=== PATIENT | female | born 1950 | race African-American/Black ===

== ENCOUNTER 2021-12-11 23:30 | Inpatient (IN) | payer MEDICARE, MEDICAID ==
[~2021-12-11] VITALS: Ht 154.9 cm; Wt 59.1 kg
[~2021-12-11 23:30] MED LIST: ACET-2708 PO; ASPI-1406 PO; ATEN-42 PO; ATEN50TA PO; ATOR20TA65 PO; BUPR-315 PO; DOCU-150 MT; LISI40TA13 PO; METF-414 PO; OLAN5TAB74 PO; SITA50TA3 PO
[2021-12-12] MEDS ORDERED: ASPIRIN 325MG EC TABLET PO NR (00:15)
[2021-12-12 00:34] LABS: CHLORIDE 108 mEq/L (98-107)
[2021-12-12 00:53] LABS: BASOPHILS % 2.7 % (0.0-2.0); EOSINOPHILS % 5.2 % (0.0-5.0); HEMOGLOBIN. 11.9 g/dL (12.0-16.0); LYMPHOCYTES % 42.2 % (20.0-50.0); MEAN CORPUSCULAR HEMOGLOBIN 31.8 pg (28.0-32.0); MEAN CORPUSCULAR VOLUME 96.6 fL (81.0-99.0); MEAN PLATELET VOLUME 9.7 fl (7.4-10.4); MONOCYTES % 4.1 % (2.0-8.0); NEUTROPHILS % 45.8 % (40.0-76.0); PLATELET 277 x1000/uL (130-400); RED BLOOD CELL COUNT 3.73 mill/uL (4.2-5.4); RED CELL DISTRIBUTION WIDTH 18.9 % (11.6-14.6)
[2021-12-12] MEDS ORDERED: FUROSEMIDE 100MG/10ML VIAL IVP NR (01:15)
[2021-12-12 08:00] LABS: CLARITY URINE CLEAR (CLEAR); COLOR URINE YELLOW (YELLOW); KETONES URINE NEGATIVE (NEGATIVE); LEUKOCYTE ESTERASE URINE 2+ (NEGATIVE); NITRITE URINE NEGATIVE (NEGATIVE); OCCULT BLOOD URINE NEGATIVE (NEGATIVE); PH URINE 6.5 (4.5-8.0); PROTEIN URINE NEGATIVE (NEGATIVE); SPECIFIC GRAVITY URINE 1.007 (1.005-1.030); UROBILINOGEN URINE 0.2 E.U./dL (0.2-1.0)
[2021-12-12 09:00] VITALS: BP 120/66
[2021-12-12] MEDS ORDERED: IPRATROPIUM/ALBUTEROL 0.5-3(2.5)MG/3ML NEB HHN PRN (09:45)
[2021-12-12] MEDS ORDERED: CLONIDINE 0.1MG TABLET PO PRN (09:45)
[2021-12-12] MEDS ORDERED: ZOLPIDEM TARTRATE 5MG TABLET PO PRN (09:45)
[2021-12-12] MEDS ORDERED: DEXTROSE 50% WATER 50ML SYRINGE IV PRN (09:45)
[2021-12-12] MEDS ORDERED: ACETAMINOPHEN 325MG TABLET PO PRN ×2 (09:45)
[2021-12-12] MEDS ORDERED: DIPHENHYDRAMINE 50MG/ML VIAL IV PRN (09:45)
[2021-12-12] MEDS ORDERED: GUAIFENESIN 200MG/10ML SUGAR FREE UDC PO PRN (09:45)
[2021-12-12] MEDS ORDERED: ONDANSETRON HCL 4MG/2ML INJ IV PRN (09:45)
[2021-12-12 10:09] VITALS: BP 105/55
[2021-12-12] MEDS: ATENOLOL 50 MG TABLET PO SCH ×2 (11:00→20:51)
[2021-12-12] MEDS: LISINOPRIL 20MG TABLET PO SCH ×2 (11:00→20:52)
[2021-12-12] MEDS: QUETIAPINE FUMARATE 50MG TABLET PO SCH ×2 (11:48→20:53)
[2021-12-12] MEDS: MULTIVITAMINS,THER W-MINERALS TABLET PO SCH (11:48)
[2021-12-12] MEDS: LEVETIRACETAM 500MG TABLET PO SCH ×2 (11:48→20:52)
[2021-12-12] MEDS: ENOXAPARIN 40MG/0.4ML SYR SUBCUT SCH (11:49)
[2021-12-12] MEDS: BLOOD SUGAR DIAGNOSTIC STRIP TEST SCH ×3 (11:50→20:53)
[2021-12-12 12:00] VITALS: BP 115/69
[2021-12-12] MEDS: INSULIN LISPRO 100 UNITS/ML SUBCUT SCH ×3 (12:05→20:53)
[2021-12-12] MEDS: SODIUM CHLORIDE 0.9% INJ 3ML FLUSH IVF SCH ×2 (13:02→20:55)
[2021-12-12 16:00] VITALS: BP 98/56
[2021-12-12] MEDS: DOCUSATE SODIUM 100MG CAPSULE PO SCH (16:38)
[2021-12-12] MEDS: MONTELUKAST SODIUM 10MG TABLET PO SCH (16:38)
[2021-12-12] MEDS: PREDNISONE 20MG TABLET PO SCH (16:38)
[2021-12-12 20:00] VITALS: BP 97/49
[2021-12-12] MEDS: ATORVASTATIN CALCIUM 40MG TABLET PO SCH (20:53)
[2021-12-13 04:00] VITALS: BP 109/57
[2021-12-13] MEDS: SODIUM CHLORIDE 0.9% INJ 3ML FLUSH IVF SCH ×3 (05:07→21:07)
[2021-12-13] MEDS: BLOOD SUGAR DIAGNOSTIC STRIP TEST SCH ×4 (07:30→21:06)
[2021-12-13 08:00] VITALS: BP 111/60
[2021-12-13] MEDS: INSULIN LISPRO 100 UNITS/ML SUBCUT SCH ×4 (08:00→21:05)
[2021-12-13] MEDS: LORATADINE 10MG TABLET PO SCH (08:47)
[2021-12-13] MEDS: QUETIAPINE FUMARATE 50MG TABLET PO SCH ×2 (08:47→21:06)
[2021-12-13] MEDS: LEVETIRACETAM 500MG TABLET PO SCH ×2 (08:47→21:06)
[2021-12-13] MEDS: DOCUSATE SODIUM 100MG CAPSULE PO SCH ×2 (08:47→16:26)
[2021-12-13] MEDS: ENOXAPARIN 40MG/0.4ML SYR SUBCUT SCH (08:48)
[2021-12-13] MEDS: PREDNISONE 20MG TABLET PO SCH ×2 (08:48→16:25)
[2021-12-13] MEDS: MULTIVITAMINS,THER W-MINERALS TABLET PO SCH (08:49)
[2021-12-13] MEDS: ASPIRIN 81MG EC TABLET PO SCH (08:56)
[2021-12-13] MEDS: ATENOLOL 50 MG TABLET PO SCH ×2 (09:00→21:00)
[2021-12-13] MEDS: LISINOPRIL 20MG TABLET PO SCH ×2 (09:00→21:00)
[2021-12-13 12:00] VITALS: BP 116/57
[2021-12-13 14:00] VITALS: BP 96/57
[2021-12-13 16:01] VITALS: BP 106/59
[2021-12-13] MEDS: MONTELUKAST SODIUM 10MG TABLET PO SCH (16:28)
[2021-12-13 20:00] VITALS: BP 103/59
[2021-12-13] MEDS: ATORVASTATIN CALCIUM 40MG TABLET PO SCH (21:06)
[2021-12-14] VITALS (7 sets, daily range): BP systolic 18–130; BP diastolic 50–62
[2021-12-14] MEDS: SODIUM CHLORIDE 0.9% INJ 3ML FLUSH IVF SCH ×3 (06:00→21:18)
[2021-12-14] MEDS: BLOOD SUGAR DIAGNOSTIC STRIP TEST SCH ×4 (07:49→20:55)
[2021-12-14] MEDS: INSULIN LISPRO 100 UNITS/ML SUBCUT SCH ×4 (07:49→21:18)
[2021-12-14] MEDS: LORATADINE 10MG TABLET PO SCH (08:45)
[2021-12-14] MEDS: DOCUSATE SODIUM 100MG CAPSULE PO SCH ×2 (08:51→17:27)
[2021-12-14] MEDS: LEVETIRACETAM 500MG TABLET PO SCH ×2 (08:51→20:53)
[2021-12-14] MEDS: PREDNISONE 20MG TABLET PO SCH ×2 (08:51→17:27)
[2021-12-14] MEDS: QUETIAPINE FUMARATE 50MG TABLET PO SCH ×2 (08:51→21:18)
[2021-12-14] MEDS: ASPIRIN 81MG EC TABLET PO SCH (08:51)
[2021-12-14] MEDS: LISINOPRIL 20MG TABLET PO SCH ×2 (08:52→20:55)
[2021-12-14] MEDS: MULTIVITAMINS,THER W-MINERALS TABLET PO SCH (08:52)
[2021-12-14] MEDS: ENOXAPARIN 40MG/0.4ML SYR SUBCUT SCH (08:56)
[2021-12-14] MEDS: ATENOLOL 50 MG TABLET PO SCH (09:00)
[2021-12-14] MEDS: MONTELUKAST SODIUM 10MG TABLET PO SCH (17:39)
[2021-12-14] MEDS: ATORVASTATIN CALCIUM 40MG TABLET PO SCH (20:53)
[2021-12-14] MEDS: ATENOLOL 25MG TABLET PO SCH (20:54)
[2021-12-15 00:01] VITALS: BP 88/28
[2021-12-15 04:00] VITALS: BP 88/50
[2021-12-15] MEDS: SODIUM CHLORIDE 0.9% INJ 3ML FLUSH IVF SCH ×2 (06:06→13:01)
[2021-12-15] MEDS: BLOOD SUGAR DIAGNOSTIC STRIP TEST SCH ×2 (07:30→12:49)
[2021-12-15 08:00] VITALS: BP 110/55
[2021-12-15] MEDS: INSULIN LISPRO 100 UNITS/ML SUBCUT SCH ×2 (08:00→12:49)
[2021-12-15] MEDS: DOCUSATE SODIUM 100MG CAPSULE PO SCH (08:48)
[2021-12-15] MEDS: MULTIVITAMINS,THER W-MINERALS TABLET PO SCH (08:48)
[2021-12-15] MEDS: QUETIAPINE FUMARATE 50MG TABLET PO SCH (08:48)
[2021-12-15] MEDS: LEVETIRACETAM 500MG TABLET PO SCH (08:48)
[2021-12-15] MEDS: LORATADINE 10MG TABLET PO SCH (08:48)
[2021-12-15] MEDS: PREDNISONE 20MG TABLET PO SCH (08:48)
[2021-12-15] MEDS: ASPIRIN 81MG EC TABLET PO SCH (08:48)
[2021-12-15] MEDS: ENOXAPARIN 40MG/0.4ML SYR SUBCUT SCH (08:49)
[2021-12-15] MEDS: ATENOLOL 25MG TABLET PO SCH (08:57)
[2021-12-15] MEDS: LISINOPRIL 20MG TABLET PO SCH (08:58)
[2021-12-15 12:00] VITALS: BP 115/60
== END 2021-12-15 14:30 | DRG 189 ==
LOC: ER 23:30 → 5EST 12-12 03:28 → ENRESERV 12-12 07:10 → 5EST 12-12 11:35
PROVIDERS: ADMIT Internal Medicine; ATTEND Internal Medicine
DX: J96.01 Acute respiratory failure with hypoxia (principal); J44.1 Chronic obstructive pulmonary disease with (acute) exacerbation; I69.354 Hemiplegia and hemiparesis following cerebral infarction affecting left non-dominant side; E11.9 Type 2 diabetes mellitus without complications; I10 Essential (primary) hypertension; G40.909 Epilepsy, unspecified, not intractable, without status epilepticus; E78.5 Hyperlipidemia, unspecified; F20.9 Schizophrenia, unspecified; M19.90 Unspecified osteoarthritis, unspecified site; G31.84 Mild cognitive impairment of uncertain or unknown etiology; F41.1 Generalized anxiety disorder; K80.20 Calculus of gallbladder without cholecystitis without obstruction; D72.10 Eosinophilia, unspecified; F32.9 Major depressive disorder, single episode, unspecified; Z20.822 Contact with and (suspected) exposure to COVID-19; Z93.1 Gastrostomy status; Z99.81 Dependence on supplemental oxygen; Z79.899 Other long term (current) drug therapy; Z87.891 Personal history of nicotine dependence
CPT/HCPCS: 36415; 71045; 71250; 80053; 81003; 82962; 83036; 83605; 83880; 84145; 84484; 85025; 87426; 93306; 97110; 97162; 97530; 99285; J1650; J1815; J1940; J7512